=== PATIENT | female | born 1985 | race Caucasian/White ===

== ENCOUNTER 2017-12-22 11:41 | Emergency (ER) | payer OTHER, MEDICAID ==
[~2017-12-22] VITALS: Ht 162.6 cm; Wt 78.9 kg
[2017-12-22 11:48] VITALS: BP_SYST 137
[2017-12-22 13:43] VITALS: BP_SYST 129
== END 2017-12-22 13:32 | disposition home or self-care (01) ==
LOC: SED 11:41
DX: J20.9 Acute bronchitis, unspecified (principal); Z90.710 Acquired absence of both cervix and uterus; Z90.89 Acquired absence of other organs; Z98.51 Tubal ligation status
CPT/HCPCS: 71046-TC; 99284

== ENCOUNTER 2018-05-03 04:14 | Emergency (ER) | payer OTHER, MEDICAID ==
[~2018-05-03] VITALS: Ht 162.6 cm; Wt 81.6 kg
[2018-05-03 04:20] VITALS: BP_SYST 155
[2018-05-03 04:39] LABS: BILIRUBIN,URINE NEGATIVE (NEGATIVE); BLOOD, URINE NEGATIVE (NEGATIVE); CLARITY/URINE CLEAR (CLEAR); COLOR,URINE YELLOW (YELLOW); GLUCOSE,URINE NEGATIVE (NEGATIVE); KETONES,URINE NEGATIVE (NEGATIVE); LEUKOCYTE ESTERASE ,URINE NEGATIVE (NEGATIVE); NITRITE, URINE NEGATIVE (NEGATIVE); PH,URINE 5.5 (5.0-8.0); PROTEIN URINE NEGATIVE (NEGATIVE); UROBILINOGEN,URINE 0.2 (0.2-1.0)
[2018-05-03] MEDS ORDERED: NACL 0.9% 1,000 ML IV ONE (04:45)
[2018-05-03] MEDS ORDERED: KETOROLAC TROMETHAMINE 30 MG VIAL IVP ONE (04:45)
[2018-05-03] MEDS ORDERED: ONDANSETRON HCL 4 MG/2 ML VIAL IVP ONE (04:45)
[2018-05-03] MEDS ORDERED: LACTULOSE 20 GM/30 ML UDC PO ONE (04:45)
[2018-05-03] MEDS ORDERED: ONDANSETRON HCL 4 MG/2 ML VIAL ONE (04:53)
[2018-05-03 07:06] VITALS: BP_SYST 140
== END 2018-05-03 07:06 | disposition home or self-care (01) ==
LOC: SED 04:14
DX: K59.00 Constipation, unspecified (principal); L03.311 Cellulitis of abdominal wall; R03.0 Elevated blood-pressure reading, without diagnosis of hypertension
CPT/HCPCS: 74021; 81003; 96361; 96374; 96375; 99285; J1885; J2405; J7030

== ENCOUNTER 2018-05-03 16:23 | Emergency (ER) | payer OTHER, MEDICAID ==
[~2018-05-03] VITALS: Ht 162.6 cm; Wt 81.6 kg
[2018-05-03 16:31] VITALS: BP_SYST 160
[2018-05-03] MEDS ORDERED: ONDANSETRON 4 MG ODT TAB PO ONE (17:00)
[2018-05-03] MEDS ORDERED: KETOROLAC TROMETHAMINE 30 MG VIAL IM ONE (17:00)
[2018-05-03 17:18] VITALS: BP_SYST 148
== END 2018-05-03 17:18 | disposition home or self-care (01) ==
LOC: SED 16:23
DX: K59.00 Constipation, unspecified (principal); R11.2 Nausea with vomiting, unspecified; R03.0 Elevated blood-pressure reading, without diagnosis of hypertension; Z90.710 Acquired absence of both cervix and uterus
CPT/HCPCS: 96372; 99283; J1885; Q0162